=== PATIENT | female | born 1980 | race Caucasian/White ===

== ENCOUNTER 2018-11-06 21:27 | Emergency (ER) | payer OTHER ==
[~2018-11-06] VITALS: Ht 157.5 cm; Wt 145.0 kg
[~2018-11-06 21:27] MED LIST: CIPROFLOXACN500 MG PO; CLINDAMYCIN300 M1 PO; NAPROSYN500 MG PO; PREDNISONE10 MG PO; PYRIDIUM200 MG PO
[2018-11-06] MEDS ORDERED: ROBITUSSIN AC10 ML PO (22:46)
[2018-11-06] MEDS ORDERED: CEPHALEXIN500 M1 PO (22:46)
[2018-11-06 23:10] VITALS: BP 109/69
== END 2018-11-06 23:10 | disposition home or self-care (01) ==
LOC: ED 21:27
DX: J06.9 Acute upper respiratory infection, unspecified (principal); R50.9 Fever, unspecified; F17.220 Nicotine dependence, chewing tobacco, uncomplicated; R05 Cough

== ENCOUNTER 2020-01-27 | Emergency (ER) | payer MEDICAID ==
[~2020-01-27] MED LIST changes: +CEPHALEXIN500 M1 PO; +ROBITUSSIN AC10 ML PO
[2020-01-27] MEDS ORDERED: TOPIRAMATE ER50 MG PO (14:08)
[2020-01-27] MEDS ORDERED: METFORMIN500 M1 PO (14:08)
[2020-01-27] MEDS ORDERED: GABAPENTIN300 M2 PO (14:09)
[2020-01-27 14:19] LABS: IMMATURE GRANULOCYTES 0.4 % (0.0-5.0); MEAN CELL VOLUME 90.3 fL CALC (80.0-100.0); MEAN CORPUSCULAR HGB 28.9 pG CALC (26.0-32.0); NEUT# 9.03 thou/uL (2.00-7.15); RED BLOOD COUNT 4.84 mill/uL (4.20-5.60); RED CELL DISTRI WIDTH 13.9 % (11.5-15.5)
[2020-01-27 14:28] LABS: HEMATOCRIT 43.7 % (37.0-47.0)
[2020-01-27 14:28] LABS: URINE BILIRUBIN - DIPSTICK NEGATIVE (NEGATIVE); URINE BLOOD DIPSTICK LARGE (NEGATIVE); URINE COLOR YELLOW; URINE GLUCOSE - DIPSTICK NEGATIVE (NEGATIVE); URINE KETONE NEGATIVE (NEGATIVE); URINE LEUK ESTERASE NEGATIVE (NEGATIVE); URINE NITRITE - DIPSTICK NEGATIVE (Negative); URINE PH 5.5 (4.5-8.0); URINE PROTEIN - DIPSTICK TRACE mg/dL (NEG-TRACE); URINE SPECIFIC GRAVITY >=1.030; URINE UROBILINOGEN - DIPSTICK 0.2 E.U./dL (0.2)
[2020-01-27 14:41] LABS: URINE CALCIUM OXALATE CRYSTALS FEW lpf; URINE SQUAMOUS EPITHELIAL CELL FEW EPI/hpf (0-FEW); URINE WBC 0-2 WBC/hpf (0-5)
[2020-01-27 14:50] LABS: ALKALINE PHOSPHATASE 85 u/l (38-126); AMYLASE 49 u/l (30-110); BUN 12 mg/dL (7-17); BUN/CREATININE RATIO 13 (12-20 (CALC)); CHLORIDE 109 mmol/l (95-108); CREATININE 0.9 mg/dL (0.5-1.0); GFR > 60 ML/MIN (>=60 (CALC)); GFR FOR AFR.AMER. > 60 ML/MIN (>=60 (CALC)); LIPASE 133 u/l (23-300); SGOT/AST 24 u/l (14-36); SODIUM 139 mmol/l (137-146)
[2020-01-27 14:56] LABS: ALBUMIN 4.5 g/dL (3.2-5.0); ANION GAP 16 (6-22 (CALC)); BILIRUBIN, TOTAL 0.6 mg/dL (0.0-1.4); CARBON DIOXIDE 18 mmol/l (22-30); POTASSIUM 4.3 mmol/l (3.5-5.1)
[2020-01-27] MEDS ORDERED: LORTAB 1010 MG PO (15:53)
[2020-01-27] MEDS ORDERED: TAMSULOSIN0.4 MG PO (15:53)
== END 2020-01-27 16:05 | disposition home or self-care (01) ==
PROVIDERS: Emergency Medicine
DX: N20.0 Calculus of kidney (principal); E11.9 Type 2 diabetes mellitus without complications; Z79.84 Long term (current) use of oral hypoglycemic drugs; F17.200 Nicotine dependence, unspecified, uncomplicated
CPT/HCPCS: Q9967

== ENCOUNTER 2023-04-29 17:44 | Emergency (ER) | payer SELFPAY ==
[2023-04-29] VITALS (10 sets, daily range): BP systolic 88–121; BP diastolic 46–70
[~2023-04-29] VITALS: Ht 157.5 cm; Wt 138.1 kg
[~2023-04-29 17:44] MED LIST changes: +GABAPENTIN300 M2 PO; +LORTAB 1010 MG PO; +METFORMIN500 M1 PO; +TAMSULOSIN0.4 MG PO; +TOPIRAMATE ER50 MG PO
[2023-04-29 18:28] LABS: URINE BILIRUBIN - DIPSTICK NEGATIVE (NEGATIVE); URINE BLOOD DIPSTICK LARGE (NEGATIVE); URINE COLOR BROWN; URINE GLUCOSE - DIPSTICK NEGATIVE (NEGATIVE); URINE KETONE TRACE mg/dL (NEGATIVE); URINE LEUK ESTERASE NEGATIVE (NEGATIVE); URINE PH 6.5 (4.5-8.0); URINE PROTEIN - DIPSTICK >=300 mg/dL (NEG-TRACE); URINE SPECIFIC GRAVITY >=1.030
[2023-04-29 18:30] LABS: BASO% 0.5 % (0-3); EOS% 2.7 % (0-8); HEMATOCRIT 40.6 % (37.0-47.0); HEMOGLOBIN 12.8 g/dl (12.0-16.0); IMMATURE GRANULOCYTES 0.1 % (0.0-5.0); LYMPH% 34.7 % (15-41); MEAN CELL VOLUME 90.8 fL CALC (80.0-100.0); MEAN CORPUSCULAR HGB 28.6 pG CALC (26.0-32.0); MEAN CORPUSCULAR HGB CONC 31.5 g/dL CAL (32.0-36.0); MONO% 6.7 % (2-13); NEUT# 4.89 thou/uL (2.00-7.15); NEUT% 55.3 % (42-76); RED BLOOD COUNT 4.47 mill/uL (4.20-5.60); RED CELL DISTRI WIDTH 13.6 % (11.5-15.5)
[2023-04-29 18:31] LABS: URINE NITRITE - DIPSTICK POSITIVE (Negative)
[2023-04-29 18:32] LABS: URINE RBC TNTC RBC/hpf (0-5); URINE SQUAMOUS EPITHELIAL CELL FEW EPI/hpf (0-FEW)
[2023-04-29 18:54] LABS: ALKALINE PHOSPHATASE 84 u/l (38-126); ANION GAP 11 (6-22 (CALC)); BILIRUBIN, TOTAL 0.4 mg/dL (0.02-1.3); BUN 15 mg/dL (7-17); BUN/CREATININE RATIO 15 (12-20 (CALC)); CARBON DIOXIDE 24 mmol/l (22-30); CHLORIDE 109 mmol/l (95-108); GFR FOR AFR.AMER. > 60 ML/MIN (>=60 (CALC)); GFR OTHER RACES > 60 ML/MIN (>=60 (CALC)); POTASSIUM 3.8 mmol/l (3.5-5.1); SGOT/AST 40 u/l (14-36); SODIUM 139 mmol/l (137-146); TOTAL PROTEIN 7.2 g/dL (6.3-8.2)
[2023-04-29] MEDS ORDERED: TYLENOL # 31 TA1 PO (19:50)
[2023-04-29] MEDS ORDERED: TAMSULOSIN0.4 MG PO (19:50)
[2023-04-30 03:22] VITALS: BP 121/80
== END 2023-04-29 20:00 | disposition home or self-care (01) | DRG 694 ==
LOC: ED 17:44
PROVIDERS: Family Medicine
DX: N20.0 Calculus of kidney (principal); E11.9 Type 2 diabetes mellitus without complications; F17.200 Nicotine dependence, unspecified, uncomplicated; Z79.84 Long term (current) use of oral hypoglycemic drugs

== ENCOUNTER 2024-06-13 11:36 | Emergency (ER) | payer SELFPAY ==
[~2024-06-13] VITALS: Ht 157.5 cm; Wt 136.0 kg
[2024-06-13] VITALS (10 sets, daily range): BP systolic 106–125; BP diastolic 69–93
[~2024-06-13 11:36] MED LIST changes: +TYLENOL # 31 TA1 PO
[2024-06-13] MEDS ORDERED: KETOROLAC TROMETHAMINE 30 MG/ML SDV IM ONE (11:55)
[2024-06-13 12:57] LABS: URINE BILIRUBIN - DIPSTICK Negative (NEGATIVE); URINE BLOOD DIPSTICK Large (NEGATIVE); URINE GLUCOSE - DIPSTICK Negative (NEGATIVE); URINE KETONE Negative (NEGATIVE); URINE LEUK ESTERASE Negative (NEGATIVE); URINE NITRITE - DIPSTICK Negative (Negative); URINE PH 5.5 (4.5-8.0); URINE PROTEIN - DIPSTICK 30 mg/dL (NEG-TRACE); URINE SPECIFIC GRAVITY 1.025; URINE UROBILINOGEN - DIPSTICK 0.2 E.U./dL (0.2)
[2024-06-13 13:02] LABS: URINE COLOR Yellow
[2024-06-13 13:03] LABS: URINE EPITHELIAL CELLS MODERATE EPI/hpf (0-FEW); URINE RBC 25-50 RBC/hpf (0-5); URINE WBC 0-2 WBC/hpf (0-5)
[2024-06-13] MEDS ORDERED: TORADOL PO (13:53)
== END 2024-06-13 14:11 | disposition home or self-care (01) | DRG 694 ==
LOC: ED 11:36
PROVIDERS: Family Medicine
DX: N13.2 Hydronephrosis with renal and ureteral calculous obstruction (principal); E11.9 Type 2 diabetes mellitus without complications; F17.200 Nicotine dependence, unspecified, uncomplicated; Z79.84 Long term (current) use of oral hypoglycemic drugs

== ENCOUNTER 2024-07-29 22:42 | Emergency (ER) | payer SELFPAY ==
[~2024-07-29] VITALS: Ht 157.5 cm; Wt 140.0 kg
[~2024-07-29 22:42] MED LIST changes: +IBUPROFEN600 MG PO; +NIACIN250 M1 PO; +TORADOL PO
[2024-07-29] MEDS ORDERED: LORTAB 5/3255 MG PO (22:50)
[2024-07-29] MEDS ORDERED: METHOCARBAMOL 500 MG/TAB PO ONE (23:20)
[2024-07-29] MEDS ORDERED: KETOROLAC TROMETHAMINE 30 MG/ML SDV IM ONE (23:25)
[2024-07-29 23:29] LABS: URINE BILIRUBIN - DIPSTICK Negative (NEGATIVE); URINE BLOOD DIPSTICK Large (NEGATIVE); URINE GLUCOSE - DIPSTICK Negative (NEGATIVE); URINE KETONE Negative (NEGATIVE); URINE LEUK ESTERASE Trace (NEGATIVE); URINE PH 5.5 (4.5-8.0); URINE PROTEIN - DIPSTICK 100 mg/dL (NEG-TRACE); URINE SPECIFIC GRAVITY 1.025; URINE UROBILINOGEN - DIPSTICK 0.2 E.U./dL (0.2)
[2024-07-29 23:41] LABS: URINE COLOR Yellow
[2024-07-29 23:42] LABS: URINE NITRITE - DIPSTICK Negative (Negative)
[2024-07-29 23:44] LABS: URINE RBC >100 RBC/hpf (0-5)
[2024-07-29 23:45] LABS: URINE BACTERIA MODERATE hpf; URINE CALCIUM OXALATE CRYSTALS FEW lpf; URINE EPITHELIAL CELLS MODERATE EPI/hpf (0-FEW)
[2024-07-30 00:37] VITALS: BP 126/69
[2024-07-30] MEDS ORDERED: TAMSULOSIN0.4 MG PO (00:45)
[2024-07-30] MEDS ORDERED: METHOCARBAMOL500 MG PO (00:45)
[2024-07-30 01:44] VITALS: BP 126/69
== END 2024-07-30 02:00 | disposition home or self-care (01) | DRG 392 ==
LOC: ED 22:42
PROVIDERS: Family Medicine
DX: R10.9 Unspecified abdominal pain (principal); N13.2 Hydronephrosis with renal and ureteral calculous obstruction; E11.9 Type 2 diabetes mellitus without complications; E28.2 Polycystic ovarian syndrome; E66.01 Morbid (severe) obesity due to excess calories; F17.220 Nicotine dependence, chewing tobacco, uncomplicated; Z87.442 Personal history of urinary calculi; Z79.84 Long term (current) use of oral hypoglycemic drugs